=== PATIENT | male | born 1970 | race Caucasian/White ===

== ENCOUNTER 2018-09-06 12:37 | Day surgery (SDC) | payer OTHER ==
[2018-09-06] MEDS ORDERED: MIDAZOLAM HCL 2MG/2ML VIAL IV ONE (12:38)
[2018-09-06] MEDS ORDERED: LIDOCAINE 2% MDV (20MG/ML) 20ML VIAL IV ONE (12:38)
[2018-09-06] MEDS ORDERED: PROPOFOL 10 MG/ML VIAL IV ONE (12:38)
--- NOTE | 2018-09-07 10:40 | Operative Note ---
DATE OF SURGERY: 09/06/2018 OPERATION: COLONOSCOPY with cold forceps polypectomy. PREOPERATIVE DIAGNOSIS: Colon cancer screening, average risk. POSTOPERATIVE DIAGNOSES: 1. A few sigmoid diverticula. 2. Diminutive sigmoid polyp. PREPARATION QUALITY: Excellent. ESTIMATED BLOOD LOSS: Minimum. COMPLICATIONS: None apparent. PROCEDURE: After informed consent was obtained from the patient, he was placed in the left lateral decubitus position in the endoscopy suite, sedated and monitored by the department of anesthesia. Digital rectal examination was unremarkable. A well-lubricated [id number] colonoscope was inserted into the rectum and advanced to the cecum. Preparation quality was excellent. The cecum, cecal bulb, ileocecal valve, appendiceal orifice, ascending colon, transverse colon, and descending colon were free of inflammatory changes, mass lesions, or polyps. The sigmoid colon demonstrated a few diverticula as well as a diminutive polyp. The polyp was removed with a cold forceps. The rectum was unremarkable in forward and in J-turn views. The endoscope was straightened, the rectal ampulla deflated, and the endoscope was removed. RECOMMENDATIONS: I would suggest the patient follow a high-fiber diet. He should undergo repeat colonoscopy in 5-10 years pending tissue histology. As always, thank you for allowing me to participate in the healthcare of your patients. CC: DO TERESA Pimentel
== END 2018-09-06 13:52 | disposition home or self-care (01) ==
LOC: HOP 12:37
PROVIDERS: ATTEND Internal Medicine Gastroenterology
DX: Z12.11 Encounter for screening for malignant neoplasm of colon (principal); K63.5 Polyp of colon; K57.30 Diverticulosis of large intestine without perforation or abscess without bleeding